=== PATIENT | male | born 1985 | race Caucasian/White ===

== ENCOUNTER → 2019-10-31 | Outpatient (CLI) | payer BC ==
--- NOTE | 2019-10-31 16:41 | Diagnostic Imaging Report ---
PROCEDURE: CT abdomen and pelvis without contrast. TECHNIQUE: Multiple contiguous axial images were obtained through the abdomen and pelvis without the use of intravenous contrast. Auto Exposure Controls were utilized during the CT exam to meet ALARA standards for radiation dose reduction. INDICATION: Left lower quadrant pain. FINDINGS: There are no prior studies available for comparison. There are a few diverticula in the sigmoid and descending colon; however, there is no distortion of the pericolonic fat to suggest acute diverticulitis. There is no pelvic mass or free fluid collection noted. The urinary bladder and prostate gland are grossly unremarkable. The appendix is visualized and is not abnormally thickened. The liver does not appear to be enlarged. There is a small 1.2 cm rounded area of low density in the left lobe of the liver. I suspect this is a cyst. If further study is desired, then ultrasound will be recommended. The spleen, pancreas, adrenals, gallbladder, kidneys, aorta, and inferior vena cava are unremarkable for an acute abnormality. The stomach is filled with particulate matter and is difficult to assess. The lung bases are clear. The bone windows show no evidence for a fracture or for a destructive lesion. IMPRESSION: 1. There may be a few diverticula involving the sigmoid and descending colon. There is no evidence for acute diverticulitis however. 2. There is no acute abnormality of the abdomen or pelvis noted otherwise. 3. The small rounded area of low density in the left lobe of the liver is most likely a cyst. Ultrasound could confirm this. Dictated by: Dictated on workstation # [id number]
== END ==
LOC: RAD 13:45
PROVIDERS: ATTEND Family Medicine
DX: K76.89 Other specified diseases of liver (principal)
CPT/HCPCS: 74176